=== PATIENT | male | born 1965 | race African-American/Black ===

== ENCOUNTER 2016-08-25 10:07 | Emergency (ER) | payer MEDICAID ==
[~2016-08-25] VITALS: Ht 172.7 cm; Wt 75.0 kg
[2016-08-25] MEDS ORDERED: SODIUM CHLORIDE 0.9% 1,000 ML IV ONE (11:10)
[2016-08-25] MEDS ORDERED: MORPHINE SULFATE 4 MG/ML CPJ (NOT FOR IM USE) IV STA (11:10)
[2016-08-25] MEDS ORDERED: METOCLOPRAMIDE HCL 10MG/2ML VIAL IV ONE (11:15)
[2016-08-25] MEDS ORDERED: KETOROLAC 30MG/ML VIAL IV ONE (12:45)
[2016-08-25 14:07] VITALS: BP 148/82
== END 2016-08-25 14:09 | disposition home or self-care (01) ==
LOC: ER 10:21
DX: R51 Headache (principal); I10 Essential (primary) hypertension; F12.10 Cannabis abuse, uncomplicated; F17.200 Nicotine dependence, unspecified, uncomplicated; Z87.828 Personal history of other (healed) physical injury and trauma
CPT/HCPCS: 70450; 96361; 96374; 96375; 99285; J1885; J2270; J2765; J7030; Z7610